=== PATIENT | male | born 1980 | race Two or more races ===

== ENCOUNTER 2024-04-07 11:35 | Emergency (ER) | payer SELFPAY ==
[~2024-04-07] VITALS: Ht 170.2 cm; Wt 77.3 kg
[2024-04-07] MEDS: ketorolac tromethamine 15mg/ml inj. IM ONE (12:31)
[2024-04-07] MEDS: TETanus/Pertussis (Acell)/Diphther VAC/PF (Tdap-Adult) 0.5ml syringe IMVAC ONE (12:32)
[2024-04-07] MEDS: LIDOcaine 1% W/epiNEPHrine 1:100,000 20ml vial IJ ONE (12:36)
[2024-04-07] MEDS ORDERED: AMOX-580 PO (13:33)
[2024-04-07 13:45] VITALS: BP 122/68; PULSE 78; RESP 16; TEMP 98.2; O2SAT 99
== END 2024-04-07 13:47 ==
LOC: ER 11:36
DX: S51.811A Laceration without foreign body of right forearm, initial encounter (principal); Z79.2 Long term (current) use of antibiotics; W54.0XXA Bitten by dog, initial encounter; Y93.89 Activity, other specified; Y92.89 Other specified places as the place of occurrence of the external cause; Y99.8 Other external cause status
CPT/HCPCS: 12004; 73090; 90471; 90715; 96372; 99284; J1885; J7030; A6258; A6446; A6449